=== PATIENT | female | born 1945 | race Caucasian/White ===

== ENCOUNTER 2016-03-20 09:42 | Emergency (ER) | payer MEDICARE ==
[2016-03-20] MEDS ORDERED: SODIUM CHLORIDE 0.9% 1,000 ML ONE (11:46)
[2016-03-20] MEDS ORDERED: CIPROFLOXACIN 400MG/200ML 200 ML IV ONE (12:00)
[2016-03-20] MEDS ORDERED: ACETAMINOPHEN 325 MG TAB ONE (12:24)
[2016-03-20] MEDS ORDERED: ONDANSETRON 4 MG VIAL ONE (14:50)
== END 2016-03-20 15:06 | disposition home or self-care (01) ==
LOC: ER 09:42
DX: R53.1 Weakness (principal); N30.90 Cystitis, unspecified without hematuria
CPT/HCPCS: 36415; 74022; 80053; 81001; 85025; 87040; 87077; 87088; 87186; 96361; 96365; 96375; 99284; J0744; J2405